=== PATIENT | female | born 1995 | race Two or more races ===

== ENCOUNTER 2020-04-14 11:01 | Outpatient (REF) | payer OTHER, SELFPAY ==
[2020-04-15 18:57] LABS: C. trachomatis RNA TMA NOT DETECTED (NOT DETECTED); N. gonorrhoeae RNA TMA NOT DETECTED (NOT DETECTED)
== END 2020-04-14 11:02 | disposition home or self-care (01) ==
LOC: HO.LAB 11:01
PROVIDERS: Visit Provider Advanced Practice Midwife
DX: Z01.419 Encounter for gynecological examination (general) (routine) without abnormal findings (principal); R87.619 Unspecified abnormal cytological findings in specimens from cervix uteri; E28.2 Polycystic ovarian syndrome; L68.0 Hirsutism
CPT/HCPCS: 36415; 87491; 87591; 88142

== ENCOUNTER 2020-04-28 08:34 | Outpatient (REF) | payer OTHER, SELFPAY ==
[2020-04-28 10:20] LABS: HIV AB/AG Nonreactive (Nonreactive); HIV Num 1 0.05 S/CO (0.00-0.99); Hepatitis B Surface Antigen Negative (Negative); ~HepC Num1 0.08 S/CO (0.00-0.79); ~Hepatitis C Antibody Nonreactive (Nonreactive)
[2020-04-28 10:29] LABS: HBsAGNum1 0.16 S/CO (0.00-0.99)
[2020-04-29 15:32] LABS: C. trachomatis RNA TMA NOT DETECTED (NOT DETECTED); N. gonorrhoeae RNA TMA NOT DETECTED (NOT DETECTED)
[2020-04-30 07:31] LABS: Syphilis Screen Nonreactive (Nonreactive)
[2020-05-02 19:11] LABS: Testosterone, Free 10.9 pg/mL (0.1-6.4); Testosterone, Total 57 ng/dL (2-45)
== END 2020-04-28 08:35 | disposition home or self-care (01) ==
LOC: HO.LAB 08:34
PROVIDERS: Visit Provider Advanced Practice Midwife
DX: L68.0 Hirsutism (principal); Z11.3 Encounter for screening for infections with a predominantly sexual mode of transmission
CPT/HCPCS: 36415; 83498; 84402; 84403; 86780; 86803; 87340; 87389; 87491; 87591

== ENCOUNTER 2020-05-01 13:09 | Outpatient (REF) | payer OTHER, SELFPAY | END 2020-05-01 13:10 | disposition home or self-care (01) | LOC: HO.LAB 13:09 | PROVIDERS: Visit Provider Internal Medicine | DX: Z20.822 Contact with and (suspected) exposure to COVID-19 (principal) | CPT/HCPCS: 36415; C9803; U0003; U0005 ==

== ENCOUNTER → 2020-05-05 12:08 | Outpatient (BNVA) | payer SELFPAY | PROVIDERS: Visit Provider Advanced Practice Midwife ==

== ENCOUNTER 2021-04-15 13:12 | Outpatient (REF) | payer MEDICAID, SELFPAY ==
[2021-04-15 16:27] LABS: CT PCR NOT DETECTED (Not Detect.); NG PCR NOT DETECTED (Not Detect.)
[2021-04-16 09:20] LABS: BV Int Neg Control Negative (Negative); BV Int Pos Control Positive (Positive)
== END 2021-04-15 13:13 | disposition home or self-care (01) ==
LOC: HO.LAB 13:12
PROVIDERS: Visit Provider Advanced Practice Midwife
DX: R10.2 Pelvic and perineal pain (principal); N93.9 Abnormal uterine and vaginal bleeding, unspecified; Z20.2 Contact with and (suspected) exposure to infections with a predominantly sexual mode of transmission
CPT/HCPCS: 87480; 87491; 87510; 87591; 87660

== ENCOUNTER 2021-05-04 13:07 | Outpatient (REF) | payer MEDICAID, SELFPAY ==
--- NOTE | ~2021-05-04 | US_ITS ---
EXAMINATION: US PELVIS CLINICAL INFORMATION: Pelvic pain COMPARISON: None TECHNIQUE: Ultrasound of the pelvis is performed using both transabdominal and transvaginal transducers along with Doppler. Transvaginal imaging is performed due to inadequate visualization transabdominally. FINDINGS: Uterus: The uterus is anteverted measuring 6.3 cm in length, 4.19 mL in AP and 4.5 minutes in transverse dimension. The uterus is homogeneous in echotexture. There is an IUD well situated in the endometrial canal. Adnexa: Both ovaries are visualized. There is normal color flow to the adnexa. There is no ovarian torsion. There is no pelvic ascites or fluid collection. Right ovary measures 4.67 x 2.22 x 2.77 cm and volume 15.0 mL. No focal lesion seen. Left ovary measures 3.78 x 1.70 x 2.72 cm and volume 9.14 cm. No focal lesion seen. There is no free fluid in cul-de-sac. US/US pelvic and transvaginal IMPRESSION: IUD is is in correct position within the endometrial canal. The ovaries unremarkable. There is no free fluid in the cul-de-sac.
== END 2021-05-04 13:08 | disposition home or self-care (01) ==
LOC: HO.HMGCX 13:07
PROVIDERS: Visit Provider Advanced Practice Midwife
DX: Z30.431 Encounter for routine checking of intrauterine contraceptive device (principal); N93.9 Abnormal uterine and vaginal bleeding, unspecified; R10.2 Pelvic and perineal pain
CPT/HCPCS: 76830; 76856

== ENCOUNTER → 2021-05-15 15:16 | Outpatient (BNVA) | payer MEDICAID, SELFPAY | PROVIDERS: Visit Provider Advanced Practice Midwife ==

== ENCOUNTER 2021-12-25 10:16 | Outpatient (REF) | payer MEDICAID, SELFPAY ==
[2021-12-25 15:47] LABS: CT PCR NOT DETECTED (Not Detect.); NG PCR NOT DETECTED (Not Detect.)
[2021-12-26 11:52] LABS: BV Int Neg Control Negative (Negative); BV Int Pos Control Positive (Positive)
== END 2021-12-25 10:17 | disposition home or self-care (01) ==
LOC: HO.LNP 10:16
PROVIDERS: Visit Provider Advanced Practice Midwife
DX: Z30.431 Encounter for routine checking of intrauterine contraceptive device (principal); N93.9 Abnormal uterine and vaginal bleeding, unspecified
CPT/HCPCS: 87480; 87491; 87510; 87591; 87660; 99212

== ENCOUNTER 2022-02-09 08:16 | Emergency (ER) | payer MEDICAID, SELFPAY ==
[2022-02-09 08:22] VITALS: BP 105/57; PULSE 91; RESP 16; TEMP 37.7; O2SAT 99; BMI 25.5
[2022-02-09 08:49] LABS: Appearance Urine Cloudy; Color Urine Yellow; Glucose Urine UA Negative (Negative); Leukocyte Esterase Urine Small (1+) (Negative); Nitrite Urine Negative (Negative); PH 5.5 (5.0-9.0); Specific Gravity - Urine >= 1.030 (1.005-1.025); UMIC TRIGGER UACC YES; Urine Blood Trace (Negative); Urine Ketones Trace mg/dL (Negative); Urine Protein Trace mg/dL (Neg-Trace)
[2022-02-09 08:50] LABS: UPreg QC Valid YES; Urine Pregnancy NEGATIVE (NEGATIVE)
[2022-02-09 08:54] LABS: Bacteria Urine 4+ (None Seen); Hyaline Casts Urine 0-2 /LPF (0-2); UACC Culture Trigger YES
[2022-02-09 09:17] LABS: Influenza A PCR NEGATIVE (Negative); Influenza B PCR NEGATIVE (Negative); Resp Syncy Virus RNA Qual PCR NEGATIVE (Negative); SARS COV2 PCR INHOUSE POSITIVE (Negative)
--- NOTE | 2022-02-09 10:24 | ED.GENADULT ---
HPI - General Adult General Chief complaint: General Medical Stated complaint: Body aches/fever/headache Time Seen by Provider: 02/09/22 10:04 Source: patient Mode of arrival: ambulatory Limitations: no limitations History of Present Illness HPI narrative: Patient is a 27-year-old female who presents to the emergency department for evaluation of tactile fever, body aches, and headache. Reports symptom onset of last night. Denies vision changes, neck pain, neck stiffness, chest pain, shortness of breath, difficulty breathing, nausea, vomiting, abdominal pain, dysuria, urinary frequency/urgency/hesitancy, hematuria. Denies known sick contacts. Has been vaccinated for influenza this year, and COVID-19 with Moderna x2. Took an at home COVID-19 test which was negative today. Related Data Home Medications Medication Instructions Recorded Confirmed copper 380 square mm intrauterine intrauterine 05/15/21 device (ParaGard T 380A) Allergies Allergy/AdvReac Type Severity Reaction Status Date / Time latex [LATEX] Allergy Unknown rash Verified 12/25/21 10:00 Review of Systems Review of Systems: Constitutional: Positive tactile fever. No chills. No weakness. Positive fatigue. Positive body aches ENT/ Mouth: No Ear Pain, no Nasal Congestion, no sore throat, No Rhinorrhea, No Swallowing Difficulty Skin: No rash or itching. Cardiovascular: No chest pain. No palpitations. Respiratory: No shortness of breath. No cough. No sputum production. Gastrointestinal: No nausea. No vomiting. No diarrhea. No abdominal pain. Genitourinary: No burning micturition. No urinary frequency. Neurologic: Positive headache. No dizziness. No syncope. No numbness or tingling in the extremities. Yes all other systems are reviewed and are negative [facility] Past Medical History Attestation statement: The following information was validated with the patient. Source: old records reviewed Medical History History of depression PCOS (polycystic ovarian syndrome) Surgical History No history of previous surgery Family History Family History Maternal Aunt Breast cancer Social History Social History Alcohol intake: never Patient Tobacco Use Status: Never used Tobacco Advance Directives: No Advance Directives Information Provided: No Physical Exam ED Vital Signs: Vital Signs - 24 hr 02/09/22 08:22 Temperature 99.8 F Pulse Rate 91 Respiratory Rate 16 Blood Pressure 105/57 L Pulse Oximetry 99 Oxygen Delivery Method Room Air BMI result Body Mass Index 25.5 Appearance: Alert.?Oriented to person, place and time. No acute distress.?Normal affect. Eyes: Pupils equal, round and reactive to light.? ENT: Pharynx normal.??TM normal bilaterally Neck: Normal inspection.? Neck supple.??No nuchal rigidity CVS: Heart sounds normal. Normal heart rate and rhythm.? Pulses normal.?? Respiratory: No respiratory distress.? Lung sounds clear to auscultation bilaterally?? Abdomen: Soft and non-tender. Normoactive bowel sounds. No CVA tenderness Skin: Skin warm and dry.? Normal skin color.? Extremities: No lower extremity edema.? Neuro: Moves all extremities spontaneously. Sensation intact bilaterally. No focal neuro deficits. Ambulates with normal steady gait. Medical Decision Making Medical Decision Making MDM Narrative: Patient is a 27-year-old female with history of depression and PCOS presenting to emergency department for evaluation of body aches, tactile fever, and headache. No meningismus/into rigidity upon examination, does not appear consistent with meningitis. Nontoxic appearing, vital signs are stable, afebrile without tachycardia, tachypnea, or hypoxia. Has been vaccinated for COVID-19. Influenza and RSV testing today are negative, COVID-19 testing is positive. Discussed option of treatment with Paxil Otis; indications, potential side effects/complications. Patient declines treatment with Paxilovid. Advised rest, hydration, acetaminophen/ibuprofen, reviewed worrisome signs and symptoms to return back to the emergency department for, outpatient follow-up with primary care provider as needed, self isolation for 5 days since symptom onset. Reviewed urinalysis obtained from triage, positive pyuria, squamous epithelial cells, urine bacteria. Patient without symptoms concerning for UTI/pyelonephritis. Asymptomatic bacteriuria at this time, culture was sent and will be followed. Discharged in stable condition. Differential Diagnoses: Differential diagnosis (Influenza, RSV, upper respiratory viral infection, urinary tract infection, pyelonephritis, urine , meningitis) Differential Diagnosis: The differential diagnosis associated with the patient?s presentation includes: Prescription medication was considered but ultimately not given after discussion with patient/family. (e.g., pain medication, antiviral, antibiotic): Prescriptions considered but not given (I considered prescription management with Bonifacio Pimentel, after discussing with patient she declined.) I considered prescription management with: Antiviral Discharge Plan Discharge Clinical Impression: COVID-19 Patient Disposition: Home, Self-Care Instructions: COVID-19 (Coronavirus Disease 2019) (ED) Additional Instructions: Be sure to rest, stay well hydrated drinking plenty of fluids, eat small frequent meals. Tylenol/ibuprofen can be used as needed for fever/pain. Pouu-nss-ridsbyz cold medications may be helpful as well for symptoms. Saline nasal spray, humidifier may be helpful for nasal congestion. You may return to the emergency department with any new or worsening symptoms or concerns. Follow-up with your primary care provider as needed. Should self isolate and remain out of school/ work until symptoms have resolved and have been without a fever for 24 hours without the use of Tylenol or ibuprofen. Soonest end isolation date of Tuesday02/14/2022 Prescriptions: No Action ParaGard T 380A 380 square mm intrauterine device intrauterine Referrals: Yovana Rosas [Primary Care Provider] -
[2022-02-09 10:30] VITALS: BP 93/56; PULSE 94; RESP 14; TEMP 37.4; O2SAT 99
--- NOTE | 2022-02-09 10:36 | PC.NURSE ---
PT AWAKE, ALERT AND ORIENTED X 3. AMBUALTORY INTO [facility] RESP EVEN, EASY, UNLABORED. OCCASIONAL NPC NOTED. SPEAKING IN FULL CLEAR SENTENCES. MANAGING SECRETIONS. EVALUATED BY PROVIDER. UPDATED ON SWAB RESULTS. PLAN IS FOR DC HOME. PT AGREEABLE TO PLAN
== END 2022-02-09 10:39 | disposition home or self-care (01) ==
PROVIDERS: Emergency Provider Emergency Medicine; PCP Nurse Practitioner
DX: U07.1 COVID-19 (principal); M79.10 Myalgia, unspecified site; R50.9 Fever, unspecified; R51.9 Headache, unspecified; Z79.899 Other long term (current) drug therapy
CPT/HCPCS: 0241U; 81001; 81025; 87086; 99283

== ENCOUNTER 2022-03-15 12:55 | Outpatient (REF) | payer MEDICAID, SELFPAY ==
--- NOTE | ~2022-03-15 | US_ITS ---
EXAMINATION: US PELVIS CLINICAL INFORMATION: 27-year-old with abnormal uterine and vaginal bleeding. LMP one week ago. COMPARISON: Ultrasound of the pelvis on 05/04/2021. (IUD in place). TECHNIQUE: Ultrasound of the pelvis is performed using both transabdominal and transvaginal transducers along with Doppler. Transvaginal imaging is performed due to inadequate visualization transabdominally. FINDINGS: Uterus: The uterus is anteverted and measures 7.5 x 3.9 x 3.6 cm. The IUD is centrally located within the endometrial canal. The uterus is smooth in contour and has normal myometrial echogenicity. No visible fibroid. Adnexa: Both ovaries are visualized. No dominant mass in either ovary. There is no pelvic ascites or fluid collection. Right ovary measures 3.8 x 2.2 x 3.1 cm. 13.6 Left ovary measures 3.6 x 1.8 x 3.4 cm. 11.5 A small amount of fluid is seen in the cul-de-sac. US/US pelvic and transvaginal IMPRESSION: Normal exam.
== END 2022-03-15 12:56 | disposition home or self-care (01) ==
LOC: HO.US 12:55
PROVIDERS: PCP Nurse Practitioner; Visit Provider Advanced Practice Midwife
DX: Z30.431 Encounter for routine checking of intrauterine contraceptive device (principal); N93.9 Abnormal uterine and vaginal bleeding, unspecified
CPT/HCPCS: 76830; 76856

== ENCOUNTER → 2022-03-23 13:55 | Outpatient (BNVA) | payer MEDICAID, SELFPAY | PROVIDERS: PCP Nurse Practitioner; Visit Provider Advanced Practice Midwife | DX: N93.9 Abnormal uterine and vaginal bleeding, unspecified (principal); Z30.432 Encounter for removal of intrauterine contraceptive device; Z71.2 Person consulting for explanation of examination or test findings | CPT/HCPCS: 58301 ==

== ENCOUNTER 2022-11-18 11:06 | Outpatient (AMB) | payer MEDICAID, SELFPAY ==
--- NOTE | 2022-11-18 11:40 | A.OFFVIS_ITS ---
Intake Vital Signs 11/18/22 11:42 Height 5 ft 4 in Weight 154 lb BMI 26.4 BP 104/58 L Intake Visit Reasons: Test Intake Note: 4 hcg test at home all positive [employer] Required: No Allergies latex [LATEX] Allergy (Unknown, Verified 11/18/22 11:46) rash Medication List - Last Reconciled 11/18/22 by Lorraine Alvarez CNM No Known Home Meds Is last menstrual period known: Yes Last menstrual period: 10/13/22 Post menopausal: No HPI Test HPI Details Patient is here for test confirmation she suspected she might be on Tuesday and she has done for tests at home and all of been positive she started feeling nauseous a few days earlier. She has been trying to get for only 2 months. She reports regular menses and she does have PCOS but her only symptoms are little facial hair and test hair. She has always had regular periods since her teen years when they were irregular she has 1 child who is 5 years old and she deliver that baby vaginally here at [facility]. She had no medical problems at all and she had a fast labor she did use an epidural and she is open to the possibility of needing 1 this time but she will see how it goes. She does know that are birthing center has closed and so that deliveries would not take place here. I reviewed with her her health she denies any history of high blood pressure her or gestational diabetes or blood clotting problems. She had a very normal . I reviewed her options with her that she could come here for care and deliver at [facility] and that we would send her there for an ultrasound at 12 weeks and genetic screening and also for an ultrasound at 20 weeks. And that we would transfer for any complication but otherwise we would take care of her here and she could delivered [facility] or she could receive all of her care and delivery at [facility] or receive all of her care at 1 of the many practices at [facility] and deliver there or receive care and deliver at [facility]. She thought about it for a little bit and decided that she will go for all of her care at [facility] so she gets to meet the team that might be involved in her delivery. I am sending a prescription for vitamins to her pharmacy at the [facility] and I gave her list of practices at [facility] and she is going to call 1 or several of the practices and decide where will meet her needs most. Reviewed self-care avoidance of toxic materials she has a healthy diet and does not smoke or use any substances [facility] Medical History History of depression PCOS (polycystic ovarian syndrome) Surgical History No history of previous surgery Family History Maternal Aunt Breast cancer Social History Alcohol intake: never Patient Tobacco Use Status: Never used Tobacco Female Reproductive History Menstrual Age of Menarche: 11 Duration of menses: 3-5 days Date of last menstrual period: 10/13/22 control method: none Total pregnancies: 2 Full term: 1 Number of Living Children: 1 Date of last pap smear: 04/15/20 (negative) History of abnormal pap smear: Yes (2017 [facility]) Physical Exam Vital Signs: Last Vital Signs BP 104/58 L 11/18/22 11:42 BMI result Body Mass Index 26.4 Results AMB Test Urine AMB Test Urine Positive Last Edit by REGINO Moctezuma on 11/18/22 11:51 Results Reviewed Results Reviewed: Laboratory Last Values [facility] Positive 11/18/22 11:50 Assessment & Plan Assessment & Plan (1) test positive: Code(s): Z32.01 - Encounter for test, result positive Plan Patient is here for test confirmation she suspected she might be on Tuesday and she has done for tests at home and all of been positive she started feeling nauseous a few days earlier. She has been trying to get for only 2 months. She reports regular menses and she does have PCOS but her only symptoms are little facial hair and test hair. She has alw ays had regular periods since her teen years when they were irregular she has 1 child who is 5 years old and she deliver that baby vaginally here at [facility]. She had no medical problems at all and she had a fast labor she did use an epidural and she is open to the possibility of needing 1 this time but she will see how it goes. She does know that are birthing center has closed and so that deliveries would not take place here. I reviewed with her her health she denies any history of high blood pressure her or gestational diabetes or blood clotting problems. She had a very normal . I reviewed her options with her that she could come here for care and deliver at [facility] and that we would send her there for an ultrasound at 12 weeks and genetic screening and also for an ultrasound at 20 weeks. And that we would transfer for any complication but otherwise we would take care of her here and she could delivered [facility] or she could receive all of her care and delivery at [facility] or receive all of her care at 1 of the many practices at [facility] and deliver there or receive care and deliver at [facility]. She thought about it for a little bit and decided that she will go for all of her care at [facility] so she gets to meet the team that might be involved in her delivery. I am sending a prescription for vitamins to her pharmacy at the [facility] and I gave her list of practices at [facility] and she is going to call 1 or several of the practices and decide where will meet her needs most. Reviewed self-care avoidance of toxic materials she has a healthy diet and does not smoke or use any substances. LMP was 10/13/22,, DARON would be 07/21/2023 and she would be 5 weeks and 1 day today. She declined a letter stating she is . Orders: Orders AMB HCG Urine Test Today Z32.01 - Encounter for test, result positive Medications: New PNV,calcium 18-[id number]-[id number] acid 27 mg iron- 1 mg ( Vitamins Plus Low Iron) 1 tab PO DAILY 90 tabs 0RF Coding Level of Care Code Est Pt Level 3 (82745) Diagnoses test positive Z32.01
[2022-11-18 11:42] VITALS: BP 104/58; BMI 26.4
== END 2022-11-18 12:33 | disposition home or self-care (01) ==
LOC: HO.HWSM 11:06
PROVIDERS: PCP Nurse Practitioner; Visit Provider Advanced Practice Midwife
DX: Z32.01 Encounter for pregnancy test, result positive (principal)
CPT/HCPCS: 99213

== ENCOUNTER → 2022-11-18 11:06 | Outpatient (BNVA) | payer MEDICAID, SELFPAY | PROVIDERS: PCP Nurse Practitioner; Visit Provider Advanced Practice Midwife | DX: Z34.90 Encounter for supervision of normal pregnancy, unspecified, unspecified trimester (principal) | CPT/HCPCS: 99212 ==

== ENCOUNTER 2022-11-21 20:22 | Emergency (ER) | payer MEDICAID, SELFPAY ==
[2022-11-21 20:29] VITALS: BP 109/40; PULSE 77; RESP 18; TEMP 36.9; O2SAT 99; BMI 27.3
--- NOTE | 2022-11-21 20:32 | ED_ITS ---
HPI - General Adult General Chief complaint: Upper Respiratory Symptoms Stated complaint: sore throat / ear pain Time Seen by Provider: 11/21/22 22:27 Source: patient and family Mode of arrival: ambulatory Limitations: no limitations History of Present Illness HPI narrative: 19-year-old female who 2 para 1, last menstrual period 10/13/2022, 5 weeks 4 days by dates, who presents emergency department for evaluation of left-sided throat pain and left-sided ear pain. Patient states that her symptoms started 2 days prior. She states that her pain is gotten worse. She has been taking Tylenol with some relief of her discomfort. She denied fever, but she did experience occasional chills. She denied rhinorrhea, cough, chest pain, shortness of breath, dyspnea on exertion. Patient did have nausea but she attributes this to her . She denied vomiting or diarrhea. Related Data Previous Rx's Medication Instructions Recorded vitamin with calcium 1 tab PO DAILY #90 tabs 11/18/22 no.72-iron 27 mg-folic acid 1 mg tablet ( Vitamins Plus Low Iron) acetaminophen 500 mg tablet 1,000 mg (2 x 500 mg) PO Q6H PRN 11/21/22 (Tylenol Extra Strength) fever or pain #20 tabs penicillin V potassium 500 mg 500 mg PO TID 10 days #30 tabs 11/21/22 tablet Allergies Allergy/AdvReac Type Severity Reaction Status Date / Time latex [LATEX] Allergy Unknown rash Verified 11/21/22 20:29 Review of Systems Review of Systems: Yes all other systems are reviewed and are negative [facility] Past Medical History Medical History History of depression PCOS (polycystic ovarian syndrome) Surgical History No history of previous surgery Family History Family History Maternal Aunt Breast cancer Social History Social History Alcohol intake: never Patient Tobacco Use Status: Never used Tobacco Smoked in Last 30 Days: No Use of substances other than those prescribed or required for medical reasons: No Advance Directives: No Advance Directives Information Provided: No Physical Exam ED Vital Signs: Vital Signs - 24 hr 11/21/22 20:29 Temperature 98.4 F Pulse Rate 77 Respiratory Rate 18 Blood Pressure 109/40 L Pulse Oximetry 99 Oxygen Delivery Method Room Air BMI result Body Mass Index 27.3 Vital signs were normal Exam: General: Awake, alert in no distress Head: Normocephalic, atraumatic EENT: PERRL, Lids normal, sclera normal, conjunctiva normal, nose normal , ears normal, throat bilateral erythema left greater than right with symmetric posterior pharynx swelling, uvula is midline, no trismus. Tympanic membranes were normal bilaterally. Neck: Supple, no adenopathy, trachea midline and nontender Lung: breath sounds symmetric, no wheezing, rales or rhonchi Chest: symmetric movement, nontender Heart: regular rate and rhythm, normal S1, S2 no murmurs or rubs Abdomen: soft, non-tender, nondistended, normal bowel sounds Psych: Pleasant, cooperative Course Course Course Narrative: RME: 27 yold female presents to the ED sore throat, ear pain, and is 5 weeks . patient denies any abdominal pain, Genitouinary, or complaints. Medications Administered Discontinued Medications Generic Name Dose Route Start Last Admin Trade Name Freq PRN Reason Stop Dose Admin Acetaminophen 975 mg 11/21/22 22:39 11/21/22 22:54 Acetaminophen 325 Mg Tablet PO 11/21/22 22:40 975 mg ONCE STA Administration Penicillin V Potassium 500 mg 11/21/22 22:39 11/21/22 22:55 Penicillin V Potassium 250 Mg Tablet PO 11/21/22 22:40 500 mg ONCE ONE Administration Medical Decision Making Medical Decision Making [facility] Narrative: 27-year-old female 5 weeks 4 days based on LMP 10/13/2022 who presents emergency department for evaluation of left-sided sore throat and left ear pain times 2 days. Patient's exam did reveal posterior erythema with symmetric soft palate swelling, uvula midline with no trismus. Patient had no adenopathy. Vital signs were normal. Patient's presentation is consistent with acute tonsillitis, she was started on penicillin 500 mg 3 times a day times 10 days advised to take Tylenol for pain. She was given her 1st dose of penicillin and Tylenol here in the emergency department. Patient's COVID-19 test and rapid strep test were negative Differential Diagnosis Differential Diagnoses: The differential diagnosis associated with the presentation includes Differential diagnosis includes but is not limited to streptococcal pharyngitis, viral pharyngitis, viral tonsillitis, bacterial tonsillitis, otitis media Lab Data MDM Lab Attestation statement: I reviewed the patient's lab results. My interpretation patient's laboratory evaluation as follows: COVID-19 was negative, rapid strep Labs: Lab Results 11/21/22 Range/Units 21:23 COVID-19 (LALITA) Negative (Negative) COVID-19 Clin Com See Note S. pyogenes GrpA MARIANNE Negative (Negative) Chronic Conditions Patient?s care impacted by: Other (1st trimester ) Discharge Plan Discharge Clinical Impression: Acute tonsillitis, First trimester Patient Disposition: Home, Self-Care Instructions: Tonsillitis (ED), First Trimester (ED) Additional Instructions: Your COVID-19 test was negative. Your rapid strep test was negative. Your throat exam reveals redness and swelling in the back of your throat consistent with tonsillitis. Take penicillin 500 mg pills, 1 pill 3 times a day for 10 days. Finish the entire antibiotic prescription. Take Tylenol (acetaminophen) 500 mg pills, 2 pills every 6 hours as needed for pain or fever. Follow-up with your doctor in 2 days. Please return to the emergency department if your symptoms get worse or if you develop any symptoms that are concerning to you. Prescriptions: New penicillin V potassium 500 mg tablet 500 mg PO TID 10 Days Qty: 30 0RF acetaminophen [Tylenol Extra Strength] 500 mg tablet 1,000 mg PO Q6H PRN (Reason: fever or pain) Qty: 20 0RF No Action Vitamin Plus Low Iron 27 mg iron- 1 mg tablet 1 tab PO DAILY Qty: 90 0RF Interventions: ED Discharge Assessment Last Done: 11/21/22 22:56 Discharge Date/Time: 11/21/22 22:58
[2022-11-21 21:37] LABS: IDNOW Serial# 08D9AD1C; Strep A Nucleic Acid Negative (Negative)
[2022-11-21 21:43] LABS: COVID-19 Test Negative (Negative); IDNOW Serial# BCCEAD1C
[2022-11-21] MEDS: Acetaminophen 325 MG TABLET 975 MG PO (22:54)
[2022-11-21] MEDS: Penicillin V Potassium 250 MG TABLET 500 MG PO (22:55)
== END 2022-11-21 22:58 | disposition home or self-care (01) ==
PROVIDERS: Physician Assistant; Emergency Provider Emergency Medicine Emergency Medical Services
DX: J03.90 Acute tonsillitis, unspecified (principal); H92.02 Otalgia, left ear; Z20.822 Contact with and (suspected) exposure to COVID-19; Z20.828 Contact with and (suspected) exposure to other viral communicable diseases
CPT/HCPCS: 87635; 87651; 99284

== ENCOUNTER 2024-11-02 14:07 | Outpatient (REF) | payer MEDICAID, SELFPAY ==
--- NOTE | ~2024-11-02 | XR_ITS ---
EXAMINATION: XR LUMBOSACRAL SPINE CLINICAL INFORMATION: pain COMPARISON: None available. TECHNIQUE: Three views of the lumbosacral spine. FINDINGS: There are 5 nonrib-bearing lumbar segments. Vertebral body height and alignment is preserved. Disc spaces are preserved. XR/XR lumbar spine 2-3V IMPRESSION: Unremarkable lumbar spine Electronically signed by: Shimon Alvarenga MD 11/02/2024 03:20 PM EDT
--- NOTE | ~2024-11-02 | XR_ITS ---
EXAMINATION: XR THORACIC SPINE CLINICAL INFORMATION: chronic pain COMPARISON: None available. TECHNIQUE: 2 views of the thoracic spine were obtained. FINDINGS: T8-9 demonstrates endplate osteophytes. Vertebral body height and alignment is preserved. No other abnormalities are seen. XR/XR thoracic spine 2V IMPRESSION: T8/9 demonstrates mild degenerative disc disease. Electronically signed by: Shimon Alvarenga MD 11/02/2024 03:21 PM EDT
--- OUTSIDE RECORDS SUMMARY | 2024-11-02 13:00 | XMS_ITS | Encounter Summary ---
Author Organization [employer] Address [address] [place] [address] 7 [place] [address] Care Team Providers Care Glass Designer Name Role Phone Shi Myrick NP Primary Care Provider [phone] Reason for Visit * Reason Comments transfer patient Encounter Details Date Type Department Care Team ([facility] st Contact Info) Description 11/02/2024 1:00 PM EDT Office Visit [facility] [address] [place] [address] Shi Myrick NP [address] [place] [address] Encounter for health-related screening (Primary Dx); Encounter [...] EDT Travel History Travel Start Travel End [facility] 10/07/2024 10/27/2024 documented as of this encounter [...] PM EDT Denice Tran MA * Feeling down, depressed, or [...] Description 01/16/2025 10:00 AM EST Procedure Visit [facility] [address] [place] [address] Shi Myrick NP [address] [place] [address] Scheduled Orders Name Type Priority Associated Diagnoses Orde r Schedule XR Thoracic Spine 2 Views Imaging Routine Chronic bilateral thoracic back pain Expected: 11/02/2024, Expires: 11/02/2025 XR Lumbar Spine 2-3 Views Imaging Routine Chronic bilateral low back pain without sciatica Expected: 11/02/2024, Expires: 11/02/2025 Vitamin D, 25-Hydroxy, Total, Immunoassay Lab Routine [...] Expires: 11/02/2025 documented as of this encounter Visit Diagnoses Diagnosis Encounter for [...] Time PHQ-9 Depression Total Score: 0 11/03/19 25 1:26 PM EDT documented as of this encounter Care Teams Glass Designer Relationship Specialty Start Date End Date Shi Myrick NP [address] [place] [address] PCP - General Family Medicine 12/14/22 Adilene Kolb Batch Still Operator 01/07/23 documented as of this encounter
--- OUTSIDE RECORDS SUMMARY | 2024-11-02 14:12 | XMS_ITS | Encounter Summary ---
Author Organization [employer] Address [address] [place] [address] 7 [place] [address] Care Team Providers Care Bulker Name Role Phone Shi Myrick NP Primary Care Provider [phone] Reason for Visit * Reason Onset Date Comments CHARTPREP 11/01/2024 Encounter Details Date Type Department Care Team ([facility] st Contact Info) Description 11/01/2024 Telephone [facility] [address] [place] [address] Denice Tran [place] CHARTPREP Social History Tobacco Use Types Packs/Day Years [...] EDT Travel History Travel Start Travel End [facility] 10/07/2024 10/27/2024 documented as of this encounter Miscellaneous Notes * Telephone Encounter - Denice Tran MA - 11/01/2024 4:11 PM EDT Chart Prep Labs: done Images: not applicable Referrals: not applicable Vaccines due: Covid and Flu Screenings: pap smear Overdue care gaps: SBIRT, PHQ-9, DESIREE-7, and Disability screen documented in this encounter Plan of Treatment Upcoming Encounters Date Type Department Care Team (Late st Contact Info) Description 01/16/2025 10:00 AM EST Procedure Visit [facility] [address] [place] [address] Shi Myrick NP [address] [place] [address] documented as of this encounter Visit Diagnoses Not on filedocumented in this encounter Additional Health Concerns Assessment Noted Time PHQ-9 Depression Total Score: 0 06/12/19 1:11 PM EDT documented as of this encounter Care Teams Bulker Relationship Specialty Start Date End Date Shi Myrick NP [address] [place] [address] PCP - General Family Medicine 12/14/22 Adilene Kolb Scouring Machine Tender 01/07/23 documented as of this encounter
--- OUTSIDE RECORDS SUMMARY | 2024-11-02 14:12 | XMS_ITS | Clinical Summary ---
Author Organization [employer] Address [address] [place] [address] 7 [place] [address] Care Team Providers Care State Farm Agent Team Member Name Role Phone Shi Myrick NP Primary Care Provider [phone] Allergies No known active allergies Medications 27-1 MG tablet Take 1 tablet by mouth in the morning. 3 Active Diclofenac Sodium (Voltaren) 1 % gelIndications: Chronic bilateral low back pain without sciatica Apply 2 g topically if needed in the morning and at bedtime (muscle pain). 100 g 3 3 Active ibuprofen 600 MG tabletIndicatio ns:Chronic bilateral low back pain without sciatica Take 1 tablet (600 mg) by mouth 3 times daily. 90 tablet 1 3 Active norethindrone (Ortho Micronor) 0.35 MG tablet Take 1 tablet (0.35 mg) by mouth Once per day. 28 tablet 12 4 Active lidocaine (Lidoderm) 5 % patchIndication s:Chronic bilateral thoracic back pain,Chronic bilateral low back pain without sciatica Apply 1 patch topically Once per day. Remove & discard patch within 12 hours or as directed by MD. 30 patch 2 5 Active Active Problems Problem Noted Date Diagnosed Date Chronic bilateral low back pain without sciatica 09/02/2022 Overview (09/26/2022): Treating with OTC patches, improved sx. Not on period. Denies assoc saddle parasthesias or loss of bladder/bowel control. Reports pain radiated down legs yesterday and was also felt in the perineum area. Improved with stretching Assessment & Plan (09/26/2022 9:31 PM EDT): Hx and exam c/w acute on chronic back pain w/ new sciatica Recommended back stretches Rx Voltaren gel, Lidocain patches, Ibuprofen 600 mg TID PRN for pain Refer to PT F/u PRN Plantar fasciitis, bilateral 09/02/2022 Overview (09/26/2022): Onset a few weeks ago of bilateral pain on soles of feet. Unknown cause. Aggravated by standing and long periods of walking Assessment & Plan (09/26/2022 9:34 PM EDT): Recommend daily foot stretches, with frozen plastic water bottle. Wear supportive shoes PT pending RTC if pain worsens F/u PRN Anxiety 06/10/2022 Overview (09/26/2022): Continue therapy every 2 weeks. Pt self-discontinued Lexapro. Declines starting another medication Assessment & Plan (09/26/2022 9:33 PM EDT): F/u PRN Vitamin D deficiency 06/10/2022 Iron deficiency 06/10/2021 Overview (09/26/2022): Ferritin was 8 on 06/16/22. H/H WNL Treating with Iron supplement 324 mg every other day Pt has been forgetting to take medication Assessment & Plan (09/26/2022 9:32 PM EDT): Educated pt on importance of taking med every other day Set reminders Take with OJ F/u PRN PCOS (polycystic ovarian syndrome) 11/18/2011 Encounters Date Type Department Care Team Description 11/02/2024 1:00 PM EDT Office Visit [facility] [address] [place] [address] Shi Myrick NP Encounter for health-related screening (Primary Dx); Encounter to establish care with new provider; Hypovitaminosis D; Chronic bilateral thoracic back pain; Chronic bilateral low back pain without sciatica; Routine screening for STI (sexually transmitted infection); PCOS (polycystic ovarian syndrome) 11/02/2024 Travel 11/01/2024 Travel 11/01/2024 Telephone [facility] [address] [place] [address] Denice Tran [place] CHARTPREP 10/26/2024 Patient Outreach [facility] [address] [place] [address] Shi Myrick NP Pre-visit Planning (SDOH negative. Tobacco screening negative. ) from Last 3 Months Immunizations Immunization Administration Dates Next Due HPV, Quadrivalent 04/23/2010,12/17/2008,10/15/19 09 Hep B, Adolescent or Pediatric 03/20/2004,2003,06/12/2003 IPV 03/20/2004,10/25/2003,06/12/2003 Influenza injectable quadriv alent IIV4 with preservative 01/12/2018 Influenza injectable quadriv alent preservative free 12/29/2020,12/05/2018,12/14/2016 Influenza, IIV3, injectable 03/20/2004 Influenza, live, intranasal 11/18/2011 MMR 10/25/2003,05/31/2000 Meningococcal MCV4P ACYW-135 07/19/2006 TD (adult), 2 Lf tetanus tox oid, preservative free, adsorbed 05/13/2004,10/25/2003,06/12/2003 Tdap 11/29/2016,04/23/2010 Varicella 05/31/2000 Family History Medical History Relation Name Comments Diabetes Brother Hyperlipidemia Mother Prediabetes Mother Breast cancer Mother's Sister Diabetes Paternal Grandmother Hyperlipidemia Paternal Grandmother Relation Name Status Comments Brother Mother Mother's Sister Paternal Grandmother Social History Tobacco Use Types Packs/Day Years Used Date Smoking Tobacco: Never Passive Smoke Exposure: Never Smokeless Tobacco: Never Tobacco Cessation:Counseling Given: Not Answered Alcohol Use Standard Drinks/Week Comments Yes 0 [...] EDT Travel History Travel Start Travel End [place] 10/07/2024 10/27/2024 Last Filed Vital Signs Vital Sign Reading [...] Mass Index 27.36 11/02/2024 1:24 PM EDT Plan of Treatment Upcoming Encounters Date Type Department Care Team (Late st Contact Info) Description 01/16/2025 10:00 AM EST Procedure Visit [facility] [address] [place], [place] [phone] Shi Myrick NP [address] [place], [place] [phone] Health Maintenance Due Date Last Done Comments HIV Screening 1994 Family Planning (PISQ) 2009 Hepatitis C Screening 01/30/2012 Cervical Cancer Screening 04/15/2023 HPV/Cotest 04/15/2023 Pap Smear 04/15/2023 04/15/2020, 02/0 11/2020, 04/14/2020 COVID-19 Vaccine ( season) 2023 09/16/2020, 08/19/2020 Influenza Vaccine (#1) 2024 , 12/29/2020, 12/05/2018, Additional history exists SDOH Screening 10/26/2025 10/26/2024 Alcohol/Substance Use Screening 11/02/2025 11/02/2024 Depression Screening 11/02/2025 11/02/2024, 11/03/19 Disability Screening 11/02/2025 11/02/2024 Tobacco Screening 11/02/2025 11/02/2024 DTaP/Tdap/Td Vaccines (7 - Td or Tdap) 04/29/2033 04/29/2023, 11/29/2016, 04/23/2010, Additional history exists Zoster Vaccines (1 of 2) 01/30/2044 RSV Patients and Patients Aged 60 years or older (1 - 1-dose 75+ series) 2069 Hepatitis B Vaccines Completed 03/20/2004, 10/25/2003, 06/12/2003 IPV Vaccines Completed 03/20/2004, 10/06, 06/12/2003 Meningococcal Vaccine Aged Out 07/19/2006, 007 No longer eligible based on patient's age to complete this topic HPV Vaccines Completed 04/23/2010, 12/05, 10/14/2008 HIB Vaccines Aged Out No longer eligi ble based on patient's age to complete this topic Hepatitis A Vaccines Aged Out No long er eligible based on patient's age to complete this topic Meningococcal B Vaccine Aged Out No l onger eligible based on patient's age to complete this topic Pneumococcal Vaccine: Pediatrics (0 to 5 Years) and At-Risk Patients (6 to 49) Years Aged Out No longer eligible based on patient's age to complete this topic RSV under 20 months Aged Out No longe r eligible based on patient's age to complete this topic Rotavirus Vaccines Aged Out No longer eligible based on patient's age to complete this topic Procedures Procedure Name Priority Date/Time Associated Diagnosis Comments PAP/HPV Routine 04/15/2020 from Last 3 Months or Most Recently Relevant to Health Maintenance Results * Pap Smear (04/15/2020) Pap Negative for intraephithelial lesion or malignancy Negative for intraephithelial lesion or malignancy, Other Historical Provider HEALTH MAINTENANCE Final Result from Last 3 Months or Most Recently Relevant to Health Maintenance Insurance [employer] [employer] Care Teams State Farm Agent Team Member Relationship Specialty Start Date End Date Shi Myrick NP [address] [place] [id number] PCP - General Family Medicine 12/14/22 Adilene Kolb Picker Operator 01/07/23
--- OUTSIDE RECORDS SUMMARY | 2024-11-02 14:12 | XMS_ITS | Encounter Summary ---
Author Organization [employer] Address [address] [facility] 7 [place] [address] Care Team Providers Care Highway Maintenance Supervisor Name Role Phone Shi Myrick NP Primary Care Provider [phone] Encounter Details Date Type Department Care Team (Latest Contact Info) Description 11/01/2024 Travel Social History Tobacco Use Types Packs/Day Years [...] EDT Travel History Travel Start Travel End [facility] 10/07/2024 10/27/2024 documented as of this encounter Plan of Treatment Upcoming Encounters Date Type Department Care Team (Late st Contact Info) Description 01/16/2025 10:00 AM EST Procedure Visit [facility] [address] [place] [address] Shi Myrick NP [address] [place] [address] documented as of this encounter Visit Diagnoses Not on filedocumented in this encounter Additional Health Concerns Assessment Noted Time PHQ-9 Depression Total Score: 0 06/12/19 23 1:11 PM EDT documented as of this encounter Care Teams Highway Maintenance Supervisor Relationship Specialty Start Date End Date Shi Myrick NP [address] [place] [address] PCP - General Family Medicine 12/14/22 Adilene Kolb Table Assembler 01/07/23 documented as of this encounter
--- OUTSIDE RECORDS SUMMARY | 2024-11-02 14:12 | XMS_ITS | Encounter Summary ---
Author Organization [employer] Address [address] [facility] 7 [place] [address] Care Team Providers Care Broomcorn Seeder Name Role Phone Shi Myrick NP Primary Care Provider [phone] Encounter Details Date Type Department Care Team ([facility] Contact Info) Description 12/22/2023 Orders Only [facility] [address] [place] [address] Provider, MD Darlene Social History Tobacco Use Types Packs/Day Years Used Date Smoking Tobacco: Never Passive Smoke Exposure: Never Smokeless Tobacco: Never Alcohol Use Standard Drinks/Week Comments Yes 0 (1 standard drink = 0.6 oz pur e alcohol) socially Depression Answer Date Recorded Patient Health Questionnaire-9 Score 0 06/11/2022 Housing Stability Answer Date Recorded What is your housing situation today? I have dinorajessee hermosillo 01/04/[address] you li ve. Do you have problems with any of the following? None of the above 01/04/2023 Food Insecurity Answer Date Recorded Within the past 12 months, y ou worried that your food would run out before you got money to buy more: Never True 01/04/2023 Within the past 12 months,th e food you bought just didn't last and you didn't have enough money to get more: Never True Transportation Answer Date Recorded In the past 12 months, has l ack of transportation kept you from medical appts, meetings, work or from getting things needed for daily living? No 01/04/2023 Utilities Answer Date Recorded In the past 12 months, has t he electric, gas, oil or water company threatened to shut off services in your home? No 01/04/2023 Depression Answer Date Recorded Patient Health Questionnaire-2 Score 0 06/11/2022 Comments Unknown Sex and Gender Information Value Date Recorded Sex Assigned at Female 01/04/2022 10:17 AM EDT Legal Sex Female 10:17 AM EDT Gender Identity Female 01/04/2022 10:17 AM EDT Sexual Orientation Straight 01/04/2022 10 :17 AM EDT Travel History Travel Start Travel End [facility] 10/07/2024 10/27/2024 documented as of this encounter Plan of Treatment Upcoming Encounters Date Type Department Care Team (Late st Contact Info) Description 01/16/2025 10:00 AM EST Procedure Visit [facility] [address] [place] [address] Shi Myrick NP [address] [place] [address] documented as of this encounter Procedures Procedure Name Priority Date/Time Associated Diagnosis Comments HM PAP/HPV Routine 04/15/2020 10:19 AM EST documented in this encounter Results * HM PAP/HPV (04/15/2020 10:19 AM EST) us Historical Provider HEALTH MAINTENANCE Final Result documented in this encounter Visit Diagnoses Not on filedocumented in this encounter Additional Health Concerns Assessment Noted Time PHQ-9 Depression Total Score: 0 06/12/19 23 1:11 PM EDT documented as of this encounter Care Teams Broomcorn Seeder Relationship Specialty Start Date End Date Shi Myrick NP [address] [place] [address] PCP - General Family Medicine 12/14/22 Adilene Kolb Development Disability Specialist 01/07/23 documented as of this encounter
--- OUTSIDE RECORDS SUMMARY | 2024-11-02 14:12 | XMS_ITS | Encounter Summary ---
Author Organization [employer] Address [address] [place] [address] 7 [place] [address] Care Team Providers Care Commodity Broker Name Role Phone Tonie Eng Halina BUNDLE SORTER Primary Care Provider Mini Shi Aponte NP Primary Care Provider [phone] Encounter Details Date Type Department Care Team (Late st Contact Info) Description 05/03/2022 Orders Only [facility] [address] [place] [address] Erica Thomas, INGA [address] [place] [address] Screening for tuberculosis (Primary Dx) Social History Tobacco Use Types Packs/Day Years Used Date Smoking Tobacco: Never Assessed Comments Unknown Sex and Gender Information Value Date Recorded Sex Assigned at Female 01/04/2022 10:17 AM EDT Legal Sex Female 10:17 AM EDT Gender Identity Female 01/04/2022 10:17 AM EDT Sexual Orientation Straight 01/04/2022 10 :17 AM EDT Travel History Travel Start Travel End [place] 10/07/2024 10/27/2024 documented as of this encounter Plan of Treatment Upcoming Encounters Date Type Department Care Team (Late st Contact Info) Description 01/16/2025 10:00 AM EST Procedure Visit [facility] [address] [place] [address] Shi Myrick NP [address] [place] [address] documented as of this encounter Procedures Procedure Name Priority Date/Time Associated Diagnosis Comments QUANTIFERON(R)-TB GOLD PLUS, 1 TUBE Routine 05/06/2022 9:38 AM EST Screening for tuberculosis documented in this encounter Results * QuantiFERON??-TB Gold Plus, 1 Tube (05/06/2022 9:38 AM EST) Quantiferon -TB Gold Plus, 1 Tube NEGATIVE NEGATIVE [facility] [place] Comment: Negative test result. M. tuberculosis complex infection unlikely. NIL 0.02 IU/mL [employer] [place] [facility] MITOGEN-NIL >10.00 IU/mL [facility] [place] [facility] TB1-NIL 0.01 IU/mL [facility] [place] [facility] TB2-NIL 0.01 IU/mL [facility] [place] [facility] Comment: The Nil tube value reflects the background interferon gamma immune response of the patient's blood sample. This value has been subtracted from the patient's displayed TB and Mitogen results. Lower than expected results with the Mitogen tube prevent false-negative Quantiferon readings by detecting a patient with a potential immune suppressive condition and/or suboptimal pre-analytical specimen handling. The TB1 Antigen tube is coated with the M. tuberculosis-specific antigens designed to elicit responses from TB antigen primed CD4+ helper T-lymphocytes. The TB2 Antigen tube is coated with the M. tuberculosis-specific antigens designed to elicit responses from TB antigen primed CD4+ helper and CD8+ cytotoxic T-lymphocytes. For additional information, please refer to https://education.[employer]faq/DQQ371 (This link is being provided for informational/ educational purposes only.) Blood Venous blood specimen / Unknown 05/06/2022 9:38 AM EST 05/06/2022 9:38 AM EST Narrative [facility] - 05/12/2022 3:49 PM EST FASTING:NO FASTING: NO Tonie Eng [facility] BLOOD ORDERABLES Final Result [facility] [address], [place] [address] [facility] [place] [facility] [address] [facility], (N[address]) [place] [address] documented in this encounter Visit Diagnoses Diagnosis Screening for tuberculosis- Primary Screening examination for pulmonary tuberculosis documented in this encounter Care Teams Commodity Broker Relationship Specialty Start Date End Date Tonie Eng FNP PCP - General Family Medicine 10/29/21 12/13/22 Shi Myrick NP [address] [place] [address] PCP - General Family Medicine 12/14/22 Adilene Kolb International Logistics Analyst 01/07/23 documented as of this encounter
--- OUTSIDE RECORDS SUMMARY | 2024-11-02 14:12 | XMS_ITS | Encounter Summary ---
Author Organization [employer] Address [address] [facility] 7 [place] [address] Care Team Providers Care Defense Attorney Name Role Phone Shi Myrick NP Primary Care Provider [phone] Encounter Details Date Type Department Care Team (Latest Contact Info) Description 11/02/2024 Travel Social History Tobacco Use Types Packs/Day [...] EDT Travel History Travel Start Travel End [facility] 10/07/2024 10/27/2024 documented as of this encounter Functional Status * Over the [...] Author Not at all 11/02/2024 1:26 PM CATALINAT Denice Tran [place] * Trouble falling or [...] Description 01/16/2025 10:00 AM EST Procedure Visit [facility] [address] [place] [address] Shi Myrick NP [address] [place] [address] documented as of this encounter Visit Diagnoses Not on filedocumented in this encounter Additional Health Concerns Assessment Noted Time PHQ-9 Depression Total Score: 0 11/03/19 25 1:26 PM EDT documented as of this encounter Care Teams Defense Attorney Relationship Specialty Start Date End Date Shi Myrick NP [address] [place] [address] PCP - General Family Medicine 12/14/22 Adilene Kolb Forensic Examiner 01/07/23 documented as of this encounter
== END 2024-11-02 14:08 | disposition home or self-care (01) ==
LOC: HO.HHCX 14:07
PROVIDERS: PCP Nurse Practitioner; Visit Provider Nurse Practitioner
DX: M54.50 Low back pain, unspecified (principal); M54.6 Pain in thoracic spine; G89.29 Other chronic pain
CPT/HCPCS: 72070; 72100

== ENCOUNTER → 2024-11-02 14:28 | Outpatient (BNV) | payer OTHER, MEDICAID, SELFPAY | PROVIDERS: PCP Nurse Practitioner; Visit Provider Radiology Diagnostic Radiology | DX: M54.50 Low back pain, unspecified (principal); M54.6 Pain in thoracic spine | CPT/HCPCS: 72070; 72100 ==

== ENCOUNTER 2024-11-07 08:43 | Outpatient (REF) | payer SELFPAY ==
--- OUTSIDE RECORDS SUMMARY | 2024-11-02 13:00 | XMS_ITS | Encounter Summary ---
Author Organization [employer] Address [address] [place] [address] [address] [place] [address] Care Team Providers Care Line Therapist Name Role Phone Shi Myrick NP Primary Care Provider [phone] Reason for Visit * Reason Comments transfer patient Encounter Details Date Type Department Care Team ([facility] st Contact Info) Description 11/02/2024 1:00 PM EDT Office Visit [facility] [address] [place] [address] Shi Myrick NP [address] [place] [address] Encounter for health-related screening (Primary Dx); Encounter to establish care with new provider; Hypovitaminosis D; Chronic bilateral thoracic back pain; Chronic bilateral low back pain without sciatica; Routine screening for STI (sexually transmitted infection); PCOS (polycystic ovarian syndrome) Social History Tobacco Use Types Packs/Day Years Used Date Smoking Tobacco: Never Passive Smoke Exposure: Never Smokeless Tobacco: Never Alcohol Use Standard Drinks/Week Comments Yes 0 (1 standard drink = 0.6 oz pur e alcohol) socially Alcohol Answer Date Recorded How often do you have a drink containing alcohol ? 0 11/02/2024 How many drinks containing a lcohol do you have on a typical day when you are drinking? 0 11/02/2024 How often do you have six or more drinks on one occasion? 0 11/02/2024 Depression Answer Date Recorded Patient Health Questionnaire-9 Score 0 11/02/2024 Patient Health Questionnaire-9 Score 0 11/02/2024 Last PHQ-9: Questionnaire Data Not on file 0 11/02/2024 Housing Stability Answer Date Recorded What is your housing situation today? I have dinora hermosillo 10/26/[address] you li ve. Do you have problems with any of the following? None of the above 10/26/2024 Food Insecurity Answer Date Recorded Within the past 12 months, y ou worried that your food would run out before you got money to buy more: Never True 10/26/2024 Within the past 12 months,th e food you bought just didn't last and you didn't have enough money to get more: Never True Transportation Answer Date Recorded In the past 12 months, has l ack of transportation kept you from medical appts, meetings, work or from getting things needed for daily living? No 10/26/2024 Utilities Answer Date Recorded In the past 12 months, has t he electric, gas, oil or water company threatened to shut off services in your home? No 10/26/2024 Depression Answer Date Recorded Patient Health Questionnaire-2 Score 0 11/02/2024 Internet Access Answer Date Recorded Internet Access Q1 Yes 10/26/2024 Internet Access Q2 Not on file 10/26/2024 Comments Unknown Sex and Gender Information Value Date Recorded Sex Assigned at Female 01/04/2022 10:17 AM EDT Legal Sex Female 10:17 AM EDT Gender Identity Female 01/04/2022 10:17 AM EDT Sexual Orientation Straight 01/04/2022 10 :17 AM EDT Travel History Travel Start Travel End [facility] 10/07/2024 10/27/2024 documented as of this encounter Last Filed Vital Signs Vital Sign Reading Time Taken Comments Blood Pressure 102/80 11/02/2024 1:24 PM EDT Pulse 64 11/02/2024 1:24 PM EDT Temperature 36.8 C (98.3 F) 11/02/2024 1:24 PM EDT Respiratory Rate 16 11/02/2024 1:24 PM EDT Oxygen Saturation 98% 11/02/2024 1:24 PM EDT Inhaled Oxygen Concentration - - Weight 72.3 kg (159 lb 6.4 oz) 11/02/2024 1:24 P M EDT Height 162.6 cm (5' 4 ) 11/02/2024 1:24 PM EDT Body Mass Index 27.36 11/02/2024 1:24 PM EDT documented in this encounter Functional Status * Over the past 2 weeks, how often have you been bothered by any of the following problems? Question Answer Date of Assessment Author Patient Health Questionnaire -2 Score 0 11/02/2024 1:26 PM EDT Denice Tran MA * Little interest or pleasure in doing things Answer Date of Assessment Author Not at all 11/02/2024 1:26 PM EDT Deniec Tran MA * Feeling down, depressed, or hopeless Answer Date of Assessment Author Not at all 11/02/2024 1:26 PM EDT Denice Tran MA * Trouble falling or staying asleep, or sleeping too much Answer Date of Assessment Author Not at all 11/02/2024 1:26 PM EDT Denice Tran MA * Feeling tired or having little energy Answer Date of Assessment Author Not at all 11/02/2024 1:26 PM EDT Denice Tran MA * Poor appetite or overeating Answer Date of Assessment Author Not at all 11/02/2024 1:26 PM EDT Denice Tran MA * Feeling bad about yourself - or that you are a failure or have let yourself or your family down Answer Date of Assessment Author Not at all 11/02/2024 1:26 PM EDT Denice Tran MA * Trouble concentrating on things, such as reading the newspaper or watching television Answer Date of Assessment Author Not at all 11/02/2024 1:26 PM EDT Denice Tran MA * Moving or speaking so slowly that other people could have noticed? Or the opposite - being so fidgety or restless that you have been moving around a lot more than usual. Answer Date of Assessment Author Not at all 11/02/2024 1:26 PM EDT Denice Tran MA * Thoughts that you would be better off or hurting yourself in some way Answer Date of Assessment Author Not at all 11/02/2024 1:26 PM EDT Denice Tran MA * Patient Health Questionnaire-9 Score Answer Date of Assessment Author 0 11/02/2024 1:26 PM EDT Denice Tran MA * Over the last 2 weeks, how often have you been bothered by any of the following problems? Question Answer Date of Assessment Author Feeling nervous, anxious, or on edge 0 11/02/2024 1:25 PM EDT Denice Tran MA Not being able to stop or co ntrol worrying 0 11/02/2024 1:25 PM EDT Denice Tran MA Worrying too much about diff erent things 0 11/02/2024 1:25 PM EDT Denice Tran MA Trouble relaxing 0 11/02/2024 1:25 PM EDT Denice Potter MA Being so restless that it is hard to sit still 0 11/02/2024 1:25 PM EDT Denice Tran MA Becoming easily annoyed or irritable 0 11/02/2024 1:25 PM EDT Denice Tran MA Feeling afraid as if somethi ng awful might happen 0 11/02/2024 1:25 PM EDT Denice Tran MA DESIREE-7 Total Score 0 11/02/2024 1:25 PM EDT Denice Tran MA documented as of this encounter Plan of Treatment Upcoming Encounters Date Type Department Care Team (Late st Contact Info) Description 01/16/2025 10:00 AM EST Procedure Visit [facility] [address] [place] [address] Shi Myrick NP [address] [place] [address] Scheduled Orders Name Type Priority Associated Diagnoses Orde r Schedule Vitamin D, 25-Hydroxy, Total, Immunoassay Lab Routine Hypovitaminosis D Expected: 11/02/2024 (Approximate), Expires: 11/02/2025 CBC auto differential Lab Routine Encounter for health-related screening Expected: 11/02/2024 (Approximate), Expires: 11/02/2025 Iron And Total Iron Binding Capacity Lab Routine Encounter for health-related screening Expected: 11/02/2024, Expires: 11/02/2025 Lipid Panel, Standard Lab Routine Encounter for health-related screening Expected: 11/02/2024 (Approximate), Expires: 11/02/2025 Syphilis Screen Lab Routine Routine screening for STI (sexually transmitted infection) Expected: 11/02/2024 (Approximate), Expires: 11/02/2025 Hepatitis B surface antigen, EIA Lab Routine Encounter for health-related screening Expected: 11/02/2024 (Approximate), Expires: 11/02/2025 Hepatitis B Surface Antibody, Qualitative Lab Routine Encounter for health-related screening Expected: 11/02/2024 (Approximate), Expires: 11/02/2025 Hepatitis B Core Antibody, Total Lab Routine Encounter for health-related screening Expected: 11/02/2024 (Approximate), Expires: 11/02/2025 Hepatitis C Antibody with Reflex to HCV, RNA, Quantitative, Real-Time PCR Lab Routine Encounter for health-related screening Expected: 11/02/2024 (Approximate), Expires: 11/02/2025 HIV-1/2 Antigen and Antibodies, Fourth Generation, with Reflexes Lab Routine Encounter for health-related screening Expected: 11/02/2024 (Approximate), Expires: 11/02/2025 Testosterone, Free (Dialysis) And Total, MS Lab Routine PCOS (polycystic ovarian syndrome) Expected: 11/02/2024 (Approximate), Expires: 11/02/2025 DHEA Sulfate Lab Routine PCOS (polycystic ovarian syndrome) Expected: 11/02/2024 (Approximate), Expires: 11/02/2025 documented as of this encounter Procedures Procedure Name Priority Date/Time Associated Diagnosis Comments XR THORACIC SPINE 2 VIEWS Routine 11/02/2024 1:51 PM EDT Chronic bilateral thoracic back pain XR LUMBAR SPINE 2-3 VIEWS Routine 11/02/2024 1:50 PM EDT Chronic bilateral low back pain without sciatica documented in this encounter Results * XR Thoracic Spine 2 Views (11/02/2024 1:51 PM EDT) Anatomical Region Laterality Modality Spine, T-spine Radiographic Josi ging 11/02/2024 1:51 PM EDT Narrative 11/02/2024 3:24 PM EDT [address] [address] XRay Report Signed Patient: Ankit Harrington MR#: [id number] 557 : 1995 Acct:[id number] Age/Sex: 29 / F ADM Date: 11/02/24 Loc: [facility] Attending Dr: Shi Myrick Ordering Physician: Shi Myrick Date of Service: 11/02/24 Procedure(s): XR thoracic spine 2V Accession Number(s): [id number] cc: Shi Myrick EXAMINATION: XR THORACIC SPINE CLINICAL INFORMATION: chronic pain COMPARISON: None available. TECHNIQUE: 2 views of the thoracic spine were obtained. FINDINGS: T8-9 demonstrates endplate osteophytes. Vertebral body height and alignment is preserved. No other abnormalities are seen. XR/XR thoracic spine 2V IMPRESSION: T8/9 demonstrates mild degenerative disc disease. Electronically signed by: Shimon Alvarenga MD 11/02/2024 03:21 PM EDT Dictated By: Shimon Alvarenga MD Signed By: <Electronically signed by Shimon Alvarenga MD in [place]> 11/02/24 1521 DD/ 1351 TD/TT: 11/02/24 1400 Market President: Procedure Note Donotuseinterpreter, Image - 11/02/[address] [address] XRay Report Signed Patient: Ankit Harrington DMR#: [id number] : 1995Acct:[id number] Age/Sex: 29 / FADM Date: 11/02/24 Loc: [facility] Attending Dr: Shi Myrick Ordering Physician: Shi Myrick Date of Service: 11/02/24 Procedure(s): XR thoracic spine 2V Accession Number(s): [id number] cc: Shi Myrick EXAMINATION: XR THORACIC SPINE CLINICAL INFORMATION: chronic pain COMPARISON: None available. TECHNIQUE: 2 views of the thoracic spine were obtained. FINDINGS: T8-9 demonstrates endplate osteophytes. Vertebral body height and alignment is preserved. No other abnormalities are seen. XR/XR thoracic spine 2V IMPRESSION: T8/9 demonstrates mild degenerative disc disease. Electronically signed by: Shimon Alvarenga MD 11/02/2024 03:21 PM EDT RP Dictated By: Shimon Alvarenga MD Signed By: <Electronically signed by Shimon Alvarenga MD in [place]> 11/02/24 1521 DD/ 1351 TD/TT: 11/02/24 1400 Market President: Shi Myrick LOAN SUPERVISOR IMG XR PROCEDURES Final Result * XR Lumbar Spine 2-3 Views (11/02/2024 1:50 PM EDT) Anatomical Region Laterality Modality Spine, L-spine Radiographic Josi ging 11/02/2024 1:50 PM EDT Narrative 11/02/2024 3:24 [place] [address] XRay Report Signed Patient: Ankit Harrington MR#: [id number] 557 : 1995 Acct:[id number] Age/Sex: 29 / F ADM Date: 11/02/24 Loc: HO.[facility]X Attending Dr: Shi Myrick Ordering Physician: Shi Myrick Date of Service: 11/02/24 Procedure(s): XR lumbar spine 2-3V Accession Number(s): [id number] cc: Shi Myrick EXAMINATION: XR LUMBOSACRAL SPINE CLINICAL INFORMATION: pain COMPARISON: None available. TECHNIQUE: Three views of the lumbosacral spine. FINDINGS: There are 5 nonrib-bearing lumbar segments. Vertebral body height and alignment is preserved. Disc spaces are preserved. XR/XR lumbar spine 2-3V IMPRESSION: Unremarkable lumbar spine Electronically signed by: Shimon Alvarenga MD 11/02/2024 03:20 PM EDT RP Dictated By: Shimon Alvarenga MD Signed By: <Electronically signed by Shimon Alvarenga MD in [place]> 11/02/24 1520 DD/ 1350 TD/TT: 11/02/24 1400 Market President: Procedure Note Donotbolivarinterpreter, Image - 11/02/[address] [address] XRay Report Signed Patient: Ankit Harrington DMR#: [id number] 557 : 1995Acct:[id number] Age/Sex: 29 / FADM Date: 11/02/24 Loc: HO.HHCX Attending Dr: Shi Myrick Ordering Physician: Shi Myrick Date of Service: 11/02/24 Procedure(s): XR lumbar spine 2-3V Accession Number(s): [id number] cc: Shi Myrick EXAMINATION: XR LUMBOSACRAL SPINE CLINICAL INFORMATION: pain COMPARISON: None available. TECHNIQUE: Three views of the lumbosacral spine. FINDINGS: There are 5 nonrib-bearing lumbar segments. Vertebral body height and alignment is preserved. Disc spaces are preserved. XR/XR lumbar spine 2-3V IMPRESSION: Unremarkable lumbar spine Electronically signed by: Shimon Alvarenga MD 11/02/2024 03:20 PM EDT Dictated By: Shimon Alvarenga MD Signed By: <Electronically signed by Shimon Alvarenga MD in [place]> 11/02/24 1520 DD/ 1350 TD/TT: 11/02/24 1400 Market President: Shi Myrick LOAN SUPERVISOR IMG XR PROCEDURES Final Result documented in this encounter Visit Diagnoses Diagnosis Encounter for health-related screening- Primary Encounter to establish care with new provider Hypovitaminosis D Unspecified vitamin D deficiency Chronic bilateral thoracic back pain Chronic bilateral low back pain without sciatica Routine screening for STI (sexually transmitted infection) Screening examination for venereal disease PCOS (polycystic ovarian syndrome) Polycystic ovaries documented in this encounter Additional Health Concerns Assessment Noted Time PHQ-9 Depression Total Score: 0 11/03/19 1:26 PM EDT documented as of this encounter Care Teams Line Therapist Relationship Specialty Start Date End Date Shi Myrick NP [address] [place] [address] PCP - General Family Medicine 12/14/22 Adilene Kolb Sand Analyst 01/07/23 documented as of this encounter
--- OUTSIDE RECORDS SUMMARY | 2024-11-07 09:11 | XMS_ITS | Encounter Summary ---
Author Organization [employer] Address [address] [place] [address] 7 [place] [address] Care Team Providers Care Front End Loader Driver Name Role Phone Tonie Eng Halina STEAM BOX HAND Primary Care Provider Mini Shi Aponte NP Primary Care Provider [phone] Encounter Details Date Type Department Care Team (Late st Contact Info) Description 05/03/2022 Orders Only [facility] [address] [place] [address] Erica Thomas, INGA [address] [place] [address] Screening for tuberculosis (Primary Dx) Social History Tobacco Use Types Packs/Day Years Used Date Smoking Tobacco: Never Assessed Comments Unknown Sex and Gender Information Value Date Recorded Sex Assigned at Female 01/04/2022 10:17 AM EDT Legal Sex Female 10:17 AM EDT Gender Identity Female 01/04/2022 10:17 AM EDT Sexual Orientation Straight 01/04/2022 10 :17 AM EDT Travel History Travel Start Travel End [place] 10/07/2024 10/27/2024 documented as of this encounter Plan of Treatment Upcoming Encounters Date Type Department Care Team (Late st Contact Info) Description 01/16/2025 10:00 AM EST Procedure Visit [facility] [address] [place] [address] Shi Myrick NP [address] [place] [address] documented as of this encounter Procedures Procedure Name Priority Date/Time Associated Diagnosis Comments QUANTIFERON(R)-TB GOLD PLUS, 1 TUBE Routine 05/06/2022 9:38 AM EST Screening for tuberculosis documented in this encounter Results * QuantiFERON??-TB Gold Plus, 1 Tube (05/06/2022 9:38 AM EST) Quantiferon -TB Gold Plus, 1 Tube NEGATIVE NEGATIVE [facility] [place] [facility] Comment: Negative test result. M. tuberculosis complex infection unlikely. NIL 0.02 IU/mL [employer] [place] [facility] MITOGEN-NIL >10.00 IU/mL [facility] [place] [facility] TB1-NIL 0.01 IU/mL [facility] [place] [facility] TB2-NIL 0.01 IU/mL [facility] [place] [facility] Comment: The Nil tube value reflects the [...] T-lymphocytes. For additional information, please refer to https://education.[employer]faq/BGL920 (This link is being provided for informational/ educational purposes only.) Blood Venous blood specimen / Unknown 05/06/2022 9:38 AM EST 05/06/2022 9:38 AM EST Narrative [facility] - 05/12/2022 3:49 PM EST FASTING:NO FASTING: NO Tonie Eng [facility] BLOOD ORDERABLES Final Result [facility] [address], [place] [address] [employer] [place] [facility] 200 [facility], (N[address]) [place] [address] documented in this encounter Visit Diagnoses Diagnosis Screening for tuberculosis- Primary Screening examination for pulmonary tuberculosis documented in this encounter Care Teams Front End Loader Driver Relationship Specialty Start Date End Date Tonie Eng FNP PCP - General Family Medicine 10/29/21 12/13/22 Shi Myrick NP [address] [place] [address] PCP - General Family Medicine 12/14/22 Adilene Kolb Bobbin Fixer 01/07/23 documented as of this encounter
--- OUTSIDE RECORDS SUMMARY | 2024-11-07 09:11 | XMS_ITS | Clinical Summary ---
Author Organization [facility] Address [address] [place] [address] 7 [place] [address] Care Team Providers Care Adjusto Writer Operator Name Role Phone Shi Myrick NP Primary Care Provider [phone] Allergies No known active allergies Medications 27-1 [...] Description 11/02/2024 1:00 PM EDT Office Visit [facility] [address] [place] [address] Shi Myrick NP Encounter for health-related screening (Primary Dx); Encounter to establish care with new provider; Hypovitaminosis D; Chronic bilateral thoracic back pain; Chronic bilateral low back pain without sciatica; Routine screening for STI (sexually transmitted infection); PCOS (polycystic ovarian syndrome) 11/02/2024 Travel 11/01/2024 Travel 11/01/2024 Telephone [facility] [address] [place] [address] Denice Tran [place] CHARTPREP 10/26/2024 Patient Outreach [facility] [address] [place] [address] Shi Myrick NP Pre-visit Planning (SDOH negative. [...] EDT Travel History Travel Start Travel End [place] 10/07/2024 10/27/2024 Last Filed Vital Signs [...] Description 01/16/2025 10:00 AM EST Procedure Visit [facility] [address] [place], [place] [phone] Shi Myrick NP [address] [place], [place] [phone] Health Maintenance Due Date Last Done Comments HIV Screening 1995 Family Planning (PISQ) 2009 Hepatitis C Screening 01/30/2012 Cervical Cancer Screening 04/15/2023 HPV/Cotest 04/15/2023 Pap Smear 04/15/2023 04/15/2020, 020 11/2020, 04/14/2020 COVID-19 Vaccine ( season) 2024 09/16/2020, 08/19/2020 Influenza Vaccine (#1) 2024 , [...] Chronic bilateral low back pain without sciatica HM PAP/HPV Routine 04/15/2020 from Last 3 Months or Most Recently Relevant to Health Maintenance Results * XR Thoracic Spine 2 Views (11/02/2024 1:51 PM EDT) Anatomical Region Laterality Modality Spine, T-spine Radiographic Josi ging 11/02/2024 1:51 PM EDT Narrative 11/02/2024 3:24 PM EDT [address] [address] XRay Report Signed Patient: Ankit Harrington MR#: [id number] : 1995 Acct:[id number] Age/Sex: 29 / F ADM Date: 11/02/24 Loc: .HHX Attending Dr: Shi Myrick Ordering Physician: Shi Myrick Date of Service: 11/02/24 Procedure(s): XR thoracic spine 2V Accession Number(s): [id number] cc: Shi Myrick EXAMINATION: XR THORACIC SPINE [...] 11/02/24 1521 DD/ 1351 TD/TT: 11/02/24 1400 Conference Services Manager: Procedure Note Donotuseinterpreter, Image - 11/02/[address] [address] XRay Report Signed Patient: Ankit Harrington DMR#: [id number] : 1995Acct:[id number] Age/Sex: 29 / FADM Date: 11/02/24 Loc: HO.HHCX Attending Dr: Shi Myrick Ordering Physician: Shi Myrick Date of Service: 11/02/24 Procedure(s): XR thoracic spine 2V Accession Number(s): [id number] cc: Shi Myrick EXAMINATION: XR THORACIC SPINE [...] 11/02/24 1521 DD/ 1351 TD/TT: 11/02/24 1400 Conference Services Manager: Shi Myrick MAINTENANCE HELPER IMG XR PROCEDURES Final Result * XR Lumbar Spine 2-3 Views (11/02/2024 1:50 PM EDT) Anatomical Region Laterality Modality Spine, L-spine Radiographic Josi ging 11/02/2024 1:50 PM EDT Narrative 11/02/2024 3:24 PM EDT [address] [address] XRay Report Signed Patient: Ankit Harrington MR#: [id number] : 1995 Acct:[id number] Age/Sex: 29 / F ADM Date: 11/02/24 Loc: .HHCX Attending Dr: Shi Myrick Ordering Physician: Shi Myrick Date of Service: 11/02/24 Procedure(s): XR lumbar spine 2-3V Accession Number(s): [id number] cc: Shi Myrick EXAMINATION: XR LUMBOSACRAL SPINE [...] 11/02/24 1520 DD/ 1350 TD/TT: 11/02/24 1400 Conference Services Manager: Procedure Note Donotuseinterpreter, Image - 11/02/[address] [address] XRay Report Signed Patient: Ankit Harrington DMR#: [id number] : 1995Acct:[id number] Age/Sex: 29 / FADM Date: 11/02/24 Loc: HO.HHCX Attending Dr: Shi Myrick Ordering Physician: Shi Myrick Date of Service: 11/02/24 Procedure(s): XR lumbar spine 2-3V Accession Number(s): [id number] cc: Shi Myrick EXAMINATION: XR LUMBOSACRAL SPINE [...] 11/02/24 1520 DD/ 1350 TD/TT: 11/02/24 1400 Conference Services Manager: Shi Myrick MAINTENANCE HELPER IMG XR PROCEDURES Final Result * Hm Pap Smear (04/15/2020) Pap Negative for intraephithelial lesion or malignancy Negative for intraephithelial lesion or malignancy, Other Historical Provider HEALTH MAINTENANCE Final Result from Last 3 Months or Most Recently Relevant to Health Maintenance Insurance [facility] Care Teams Adjusto Writer Operator Relationship Specialty Start Date End Date Shi Myrick NP [address] [place] [id number] PCP - General Family Medicine 12/14/22 Adilene Kolb Principal Network Engineer 01/07/23
--- OUTSIDE RECORDS SUMMARY | 2024-11-07 09:11 | XMS_ITS | Encounter Summary ---
Author Organization [employer] Address [address] [facility] 7 [place] [address] Care Team Providers Care Fundraising Consultant Name Role Phone Shi Myrick NP Primary Care Provider [phone] Encounter Details Date Type Department Care Team [...] Travel History Travel Start Travel End [facility] 10/07/2024 10/27/2024 documented as of [...] EST Procedure Visit [facility] [address] [place] [address] Shi Myrick NP [address] [place] [address] documented as of this encounter Visit Diagnoses Not on filedocumented in this encounter Additional Health Concerns Assessment Noted Time PHQ-9 Depression Total Score: 0 11/03/19 25 1:26 PM EDT documented as of this encounter Care Teams Fundraising Consultant Relationship Specialty Start Date End Date Shi Myrick NP [address] [place] [address] PCP - General Family Medicine 12/14/22 Adilene Kolb Glass Blowing Instructor 01/07/23 documented as of this encounter
--- OUTSIDE RECORDS SUMMARY | 2024-11-07 09:12 | XMS_ITS | Encounter Summary ---
Author Organization [employer] Address [address] [facility] [address] [place] [address] Care Team Providers Care Senior Information Systems Architect Name Role Phone Shi Myrick NP Primary Care Provider [phone] Encounter Details Date Type Department Care Team ([facility] Contact Info) Description 12/22/2023 Orders Only [facility] [address] [place] [address] Provider, MD Darlene Social History Tobacco Use [...] Travel History Travel Start Travel End [facility] 10/07/2024 10/27/2024 documented as of this encounter Plan of Treatment Upcoming Encounters Date Type Department Care Team (Late st Contact Info) Description 01/16/2025 10:00 AM EST Procedure Visit [facility] [address] [place] [address] Shi Myrick NP [address] [place] [address] documented as of this encounter Procedures Procedure [...] documented as of this encounter Care Teams Senior Information Systems Architect Relationship Specialty Start Date End Date Shi Myrick NP [address] [place] [address] PCP - General Family Medicine 12/14/22 Adilene Kolb Habilitative Interventionist 01/07/23 documented as of this encounter
[2024-11-07 11:34] LABS: MANUAL DIFF FLAG NO
[2024-11-07 11:50] LABS: Hematocrit 39.2 % (37.0-47.0); Hemoglobin 12.9 g/dl (12.0-16.0); Imm Gran Abs Auto 0.02 X10*3/uL (0.00-0.03); Imm Gran Pct Auto 0.4 % (0.0-0.4); Lymphocytes Absolute Auto 1.9 X10*3/uL (1.2-4.9); Mean Corpuscular HGB Conc 32.9 g/dl (31.0-35.0); Mean Corpuscular Hemoglobin 24.5 pg (27.0-33.0); Mean Corpuscular Volume 74.5 fL (80.0-98.0); NRBC Abs Auto 0.000 X10*3/uL (0.0-0.012); NRBC Pct Auto 0.0 /100WBC (0.0-0.2); Platelet Count 216 X10*3/uL (160-400); Red Blood Count 5.26 X10*6/uL (4.20-5.50); White Blood Count 5.1 X10*3/uL (4.8-10.8)
[2024-11-07 12:13] LABS: Cholesterol 190 mg/dL (<200); HDL Cholesterol 43 mg/dL (>40); Iron 60 mcg/dL (30-160); Percent Iron Saturation 20 % (15-50); Total Iron Binding Capacity 304 mcg/dL (228-428); Triglycerides 94 mg/dL (<150); Unsaturated Iron Binding 244 ug/dL
[2024-11-07 12:22] LABS: HBS Num1 98.02 mIU/mL (0-7.99); HBc Num1 0.08 S/CO (0.00-0.79); HBsAGNum1 0.46 S/CO (0.00-0.99); HIV Num 1 0.06 S/CO (0.00-0.99); Hepatitis B Surface Antigen Negative (Negative); Syphilis Screen Nonreactive (Nonreactive); ~HepC Num1 0.13 S/CO (0.00-0.79); ~Hepatitis B Surface Antibody REACTIVE (Nonreactive); ~Hepatitis C Antibody Nonreactive (Nonreactive)
[2024-11-11 15:08] LABS: Testosterone, Free 5.0 pg/mL (0.1-6.4)
== END 2024-11-07 08:44 | disposition home or self-care (01) ==
LOC: HO.HHCL 08:43
PROVIDERS: PCP Nurse Practitioner; Visit Provider Nurse Practitioner
DX: Z11.3 Encounter for screening for infections with a predominantly sexual mode of transmission (principal); Z13.6 Encounter for screening for cardiovascular disorders; Z11.59 Encounter for screening for other viral diseases; Z11.4 Encounter for screening for human immunodeficiency virus [HIV]; Z13.89 Encounter for screening for other disorder; E28.2 Polycystic ovarian syndrome; E55.9 Vitamin D deficiency, unspecified
CPT/HCPCS: 36415; 80061; 82306; 82627; 83540; 84402; 84403; 85025; 86704; 86706; 86780; 86803; 87340; 87389